=== PATIENT | male | born 1950 | race Caucasian/White ===

== ENCOUNTER 2017-07-08 01:45 | Emergency (ER) | payer OTHER, MEDICARE ==
[~2017-07-08] VITALS: Ht 180.3 cm; Wt 104.3 kg
[~2017-07-08 01:45] MED LIST: ACEBUTCAFT PO; ASPI325; ASPI325 PO; ASPI81CH PO; ASPI81EC; ASPI81EC PO; ATEN50 PO; ATOR80 PO; AZIT250 PO; CLOP75; CODGUAEL PO; CYCL10 PO; DIVA250EC; DIVA500EC; DIVA500EC PO; DOC250 PO; DOCU100 PO; Esgic Tablet1 EACH PO; FENT25TP; FENT50TP; FLUT.05NI; GABA300; GABA400; HEART PILL; HYDACE5; HYDMOR2 PO; IMIP25; ISODICACE PO; Inderal40 MG PO; LAVAP17G PO; MAGCHL64ER; METHADONE; METO25ER PO; METO50ER; MORP15ER PO; NAPR220; NAPR500 PO; NEURO; NEURONTIN; NITR.4SL; NITR.4SL SL; OXYACE5T; OXYACE5T PO; OXYACE7.5T PO; OXYC10ER; OXYCODONE; PANT20 PO; RXHYDMOR2 PO; RXONDA4ODT MM; RXOXYACE PO; TIZA4; TOPI25; WARF5; XARELTO20 MG PO
[2017-07-08] MEDS ORDERED: HYDMOR2 PO (02:07)
== END 2017-07-08 03:43 | disposition home or self-care (01) ==
LOC: ER 01:45
DX: R51 Headache (principal); G43.909 Migraine, unspecified, not intractable, without status migrainosus; I25.2 Old myocardial infarction; I25.10 Atherosclerotic heart disease of native coronary artery without angina pectoris; I10 Essential (primary) hypertension; E11.9 Type 2 diabetes mellitus without complications; I48.0 Paroxysmal atrial fibrillation; Z79.82 Long term (current) use of aspirin; Z88.8 Allergy status to other drugs, medicaments and biological substances; Z95.5 Presence of coronary angioplasty implant and graft; Z98.890 Other specified postprocedural states
CPT/HCPCS: 96374; 99283; J1100; J1885

== ENCOUNTER 2017-11-21 01:17 | Emergency (ER) | payer OTHER, MEDICARE ==
[~2017-11-21] VITALS: Ht 180.3 cm; Wt 102.1 kg
== END 2017-11-21 03:35 | disposition home or self-care (01) ==
LOC: ER 01:17
DX: R51 Headache (principal); I25.2 Old myocardial infarction; I25.10 Atherosclerotic heart disease of native coronary artery without angina pectoris; I48.0 Paroxysmal atrial fibrillation; I10 Essential (primary) hypertension; E11.9 Type 2 diabetes mellitus without complications; Z88.8 Allergy status to other drugs, medicaments and biological substances; Z79.899 Other long term (current) drug therapy; Z79.82 Long term (current) use of aspirin; Z87.891 Personal history of nicotine dependence
CPT/HCPCS: 96374; 96375; 99283-25; J1170; J1885; J2405

== ENCOUNTER 2018-07-26 02:18 | Emergency (ER) | payer OTHER, MEDICARE ==
[~2018-07-26] VITALS: Ht 177.8 cm; Wt 102.1 kg
== END 2018-07-26 03:59 | disposition home or self-care (01) ==
LOC: ER 02:18
DX: R51 Headache (principal); I10 Essential (primary) hypertension; E11.9 Type 2 diabetes mellitus without complications; I25.2 Old myocardial infarction; I25.10 Atherosclerotic heart disease of native coronary artery without angina pectoris; I48.0 Paroxysmal atrial fibrillation; Z79.899 Other long term (current) drug therapy; Z79.82 Long term (current) use of aspirin
CPT/HCPCS: 96374; 96375; 96376; 99284-25; J1170; J1885

== ENCOUNTER 2018-11-01 01:38 | Emergency (ER) | payer OTHER, MEDICARE ==
[~2018-11-01] VITALS: Ht 180.3 cm; Wt 102.1 kg
== END 2018-11-01 04:00 | disposition home or self-care (01) ==
LOC: ER 01:38
DX: R51 Headache (principal); Z88.8 Allergy status to other drugs, medicaments and biological substances; Z79.899 Other long term (current) drug therapy; Z79.82 Long term (current) use of aspirin; I25.10 Atherosclerotic heart disease of native coronary artery without angina pectoris; I48.0 Paroxysmal atrial fibrillation; I10 Essential (primary) hypertension; E11.9 Type 2 diabetes mellitus without complications; Z87.891 Personal history of nicotine dependence
CPT/HCPCS: 96374; 96375; 99283-25; J1170; J1885

== ENCOUNTER 2018-11-24 01:38 | Emergency (ER) | payer OTHER, MEDICARE ==
[~2018-11-24] VITALS: Ht 180.3 cm; Wt 104.3 kg
== END 2018-11-24 03:22 | disposition home or self-care (01) ==
LOC: ER 01:38
DX: R51 Headache (principal); I25.2 Old myocardial infarction; I10 Essential (primary) hypertension; E11.9 Type 2 diabetes mellitus without complications; I48.0 Paroxysmal atrial fibrillation; Z87.891 Personal history of nicotine dependence; Z79.899 Other long term (current) drug therapy
CPT/HCPCS: 96374; 96375; 96376; 99283-25; J1170; J1885

== ENCOUNTER 2019-03-15 00:45 | Emergency (ER) | payer OTHER, MEDICARE ==
[~2019-03-15] VITALS: Ht 180.3 cm; Wt 104.3 kg
== END 2019-03-15 02:41 | disposition home or self-care (01) ==
LOC: ER 00:45
DX: R51 Headache (principal); T43.4X5A Adverse effect of butyrophenone and thiothixene neuroleptics, initial encounter; Z88.8 Allergy status to other drugs, medicaments and biological substances; Z79.899 Other long term (current) drug therapy; Z79.82 Long term (current) use of aspirin; G43.909 Migraine, unspecified, not intractable, without status migrainosus; I10 Essential (primary) hypertension; E11.9 Type 2 diabetes mellitus without complications; I48.91 Unspecified atrial fibrillation; Z87.891 Personal history of nicotine dependence
CPT/HCPCS: 96361; 96374; 96375; 99283-25; J1170; J1885; J2060; J7030

== ENCOUNTER 2019-04-23 01:52 | Emergency (ER) | payer OTHER, MEDICARE ==
[~2019-04-23] VITALS: Ht 180.3 cm; Wt 104.3 kg
== END 2019-04-23 03:11 | disposition home or self-care (01) ==
LOC: ER 01:52
DX: R51 Headache (principal); I10 Essential (primary) hypertension; E11.9 Type 2 diabetes mellitus without complications; I25.2 Old myocardial infarction; I25.10 Atherosclerotic heart disease of native coronary artery without angina pectoris; I48.0 Paroxysmal atrial fibrillation; Z88.8 Allergy status to other drugs, medicaments and biological substances; Z79.82 Long term (current) use of aspirin; Z79.899 Other long term (current) drug therapy; Z87.891 Personal history of nicotine dependence
CPT/HCPCS: 96374; 96375; 99283-25; J1170; J1885

== ENCOUNTER 2019-09-05 03:20 | Emergency (ER) | payer OTHER, MEDICARE ==
[~2019-09-05] VITALS: Ht 180.3 cm; Wt 104.3 kg
== END 2019-09-05 04:01 | disposition home or self-care (01) ==
LOC: ER 03:20
DX: R51 Headache (principal); I10 Essential (primary) hypertension; I25.2 Old myocardial infarction; E11.9 Type 2 diabetes mellitus without complications; I48.0 Paroxysmal atrial fibrillation; I25.10 Atherosclerotic heart disease of native coronary artery without angina pectoris; Z88.8 Allergy status to other drugs, medicaments and biological substances; Z79.82 Long term (current) use of aspirin; Z79.899 Other long term (current) drug therapy
CPT/HCPCS: 36415; 96374; 96375; 99283-25; J1170; J1885

== ENCOUNTER 2019-09-16 02:12 | Emergency (ER) | payer OTHER, MEDICARE ==
[~2019-09-16] VITALS: Ht 182.9 cm; Wt 102.1 kg
== END 2019-09-16 03:52 | disposition home or self-care (01) ==
LOC: ER 02:12
DX: R51 Headache (principal); Z87.820 Personal history of traumatic brain injury; I10 Essential (primary) hypertension; E11.9 Type 2 diabetes mellitus without complications; I25.10 Atherosclerotic heart disease of native coronary artery without angina pectoris; I48.0 Paroxysmal atrial fibrillation; I25.2 Old myocardial infarction; Z88.8 Allergy status to other drugs, medicaments and biological substances; Z79.82 Long term (current) use of aspirin; Z79.899 Other long term (current) drug therapy
CPT/HCPCS: 96374; 96375; 99283-25; J1170; J1885

== ENCOUNTER 2019-10-09 00:29 | Emergency (ER) | payer OTHER, MEDICARE ==
[~2019-10-09] VITALS: Ht 180.3 cm; Wt 104.3 kg
== END 2019-10-09 02:08 | disposition home or self-care (01) ==
LOC: ER 00:29
DX: G43.909 Migraine, unspecified, not intractable, without status migrainosus (principal); I25.2 Old myocardial infarction; I25.10 Atherosclerotic heart disease of native coronary artery without angina pectoris; I48.0 Paroxysmal atrial fibrillation; I10 Essential (primary) hypertension; E11.9 Type 2 diabetes mellitus without complications; Z88.8 Allergy status to other drugs, medicaments and biological substances; Z79.82 Long term (current) use of aspirin; Z79.899 Other long term (current) drug therapy
CPT/HCPCS: 36415; 96374; 96375; 99282-25; J1170; J1885

== ENCOUNTER 2019-11-15 00:12 | Emergency (ER) | payer OTHER, MEDICARE ==
[~2019-11-15] VITALS: Ht 180.3 cm; Wt 104.3 kg
== END 2019-11-15 01:52 | disposition home or self-care (01) ==
LOC: ER 00:12
DX: R51 Headache (principal); Z88.8 Allergy status to other drugs, medicaments and biological substances; Z79.82 Long term (current) use of aspirin; Z79.899 Other long term (current) drug therapy; I25.2 Old myocardial infarction; I25.10 Atherosclerotic heart disease of native coronary artery without angina pectoris; I10 Essential (primary) hypertension; I48.91 Unspecified atrial fibrillation; E11.9 Type 2 diabetes mellitus without complications
CPT/HCPCS: 36415; 96374; 96375; 99283-25; J1170; J1885

== ENCOUNTER 2020-01-04 03:45 | Emergency (ER) | payer OTHER, MEDICARE ==
[~2020-01-04] VITALS: Ht 180.3 cm; Wt 104.3 kg
== END 2020-01-04 04:56 | disposition home or self-care (01) ==
LOC: ER 03:45
DX: R51 Headache (principal); Z87.820 Personal history of traumatic brain injury; I10 Essential (primary) hypertension; E11.9 Type 2 diabetes mellitus without complications; I25.10 Atherosclerotic heart disease of native coronary artery without angina pectoris; I48.0 Paroxysmal atrial fibrillation; I25.2 Old myocardial infarction; Z95.5 Presence of coronary angioplasty implant and graft; Z87.891 Personal history of nicotine dependence; Z79.899 Other long term (current) drug therapy; Z79.82 Long term (current) use of aspirin
CPT/HCPCS: 96374; 99283-25; J1885

== ENCOUNTER 2020-04-20 04:43 | Emergency (ER) | payer OTHER, MEDICARE ==
[~2020-04-20] VITALS: Ht 180.3 cm; Wt 104.3 kg
== END 2020-04-20 05:48 | disposition home or self-care (01) ==
LOC: ER 04:43
DX: R51.9 Headache, unspecified (principal); I10 Essential (primary) hypertension; E11.9 Type 2 diabetes mellitus without complications; I25.10 Atherosclerotic heart disease of native coronary artery without angina pectoris; I48.0 Paroxysmal atrial fibrillation; I25.2 Old myocardial infarction; Z95.5 Presence of coronary angioplasty implant and graft; Z87.891 Personal history of nicotine dependence; Z79.82 Long term (current) use of aspirin; Z79.899 Other long term (current) drug therapy; Z88.8 Allergy status to other drugs, medicaments and biological substances
CPT/HCPCS: 96374; 96375; 99283-25; J1170; J2405; J7030

== ENCOUNTER 2020-06-23 15:36 | Emergency (ER) | payer OTHER, MEDICARE ==
[~2020-06-23] VITALS: Ht 180.3 cm; Wt 90.7 kg
[2020-06-24] MEDS ORDERED: Zovirax800 MG PO (00:53)
[2020-06-24] MEDS ORDERED: LIDO700A20 TOP (00:53)
== END 2020-06-23 16:41 | disposition left against medical advice (07) ==
LOC: ER 15:36
DX: M25.512 Pain in left shoulder (principal); Z53.21 Procedure and treatment not carried out due to patient leaving prior to being seen by health care provider
CPT/HCPCS: 73030; 99283-25

== ENCOUNTER 2020-06-24 00:23 | Emergency (ER) | payer MEDICARE ==
[~2020-06-24] VITALS: Ht 180.3 cm; Wt 108.9 kg
[2020-06-24] MEDS ORDERED: Zovirax800 MG PO (00:53)
[2020-06-24] MEDS ORDERED: LIDO700A20 TOP (00:53)
== END 2020-06-24 01:47 | disposition home or self-care (01) ==
LOC: ER 00:23
DX: B02.9 Zoster without complications (principal); I10 Essential (primary) hypertension; E11.9 Type 2 diabetes mellitus without complications; I25.10 Atherosclerotic heart disease of native coronary artery without angina pectoris; I48.0 Paroxysmal atrial fibrillation; Z88.8 Allergy status to other drugs, medicaments and biological substances; Z79.82 Long term (current) use of aspirin; Z79.899 Other long term (current) drug therapy
CPT/HCPCS: 96374; 96375; 99283-25; A9270; J1170; J2405; J7030

== ENCOUNTER 2020-07-25 23:12 | Emergency (ER) | payer OTHER, MEDICARE ==
[~2020-07-25] VITALS: Ht 175.3 cm; Wt 102.1 kg
[~2020-07-25 23:12] MED LIST changes: +LIDO700A20 TOP; +Zovirax800 MG PO
== END 2020-07-26 02:49 | disposition home or self-care (01) ==
LOC: ER 23:12
DX: R51.9 Headache, unspecified (principal); I10 Essential (primary) hypertension; E11.9 Type 2 diabetes mellitus without complications; I25.10 Atherosclerotic heart disease of native coronary artery without angina pectoris; I48.0 Paroxysmal atrial fibrillation; F17.220 Nicotine dependence, chewing tobacco, uncomplicated; Z79.82 Long term (current) use of aspirin; Z79.899 Other long term (current) drug therapy; Z88.8 Allergy status to other drugs, medicaments and biological substances
CPT/HCPCS: 96374; 96375; 99283-25; J1170; J2550; J7030

== ENCOUNTER 2020-08-30 23:49 | Emergency (ER) | payer OTHER, MEDICARE ==
[~2020-08-30] VITALS: Ht 180.3 cm; Wt 106.6 kg
== END 2020-08-31 01:37 | disposition home or self-care (01) ==
LOC: ER 23:49
DX: R51.9 Headache, unspecified (principal); I48.91 Unspecified atrial fibrillation; I25.2 Old myocardial infarction; I10 Essential (primary) hypertension; E11.9 Type 2 diabetes mellitus without complications; F17.220 Nicotine dependence, chewing tobacco, uncomplicated; Z95.5 Presence of coronary angioplasty implant and graft; Z79.899 Other long term (current) drug therapy; Z79.82 Long term (current) use of aspirin
CPT/HCPCS: 96374; 96375; 99283; J1170; J2550

== ENCOUNTER 2020-10-31 03:30 | Emergency (ER) | payer OTHER, MEDICARE ==
[~2020-10-31] VITALS: Ht 180.3 cm; Wt 104.3 kg
== END 2020-10-31 05:26 | disposition home or self-care (01) ==
LOC: ER 03:30
DX: R51.9 Headache, unspecified (principal); I10 Essential (primary) hypertension; F17.220 Nicotine dependence, chewing tobacco, uncomplicated; Z88.8 Allergy status to other drugs, medicaments and biological substances; Z79.899 Other long term (current) drug therapy
CPT/HCPCS: 96374; 96375; 96376; 99283-25; J1170; J2405

== ENCOUNTER 2020-11-11 03:04 | Emergency (ER) | payer OTHER, MEDICARE ==
[~2020-11-11] VITALS: Ht 180.3 cm; Wt 104.3 kg
== END 2020-11-11 07:52 | disposition home or self-care (01) ==
LOC: ER 03:04
DX: G43.909 Migraine, unspecified, not intractable, without status migrainosus (principal); I25.10 Atherosclerotic heart disease of native coronary artery without angina pectoris; I48.91 Unspecified atrial fibrillation; I10 Essential (primary) hypertension; E11.9 Type 2 diabetes mellitus without complications; F17.220 Nicotine dependence, chewing tobacco, uncomplicated; Z88.8 Allergy status to other drugs, medicaments and biological substances; Z79.82 Long term (current) use of aspirin; Z95.5 Presence of coronary angioplasty implant and graft; Z79.899 Other long term (current) drug therapy
CPT/HCPCS: 36415; 96374; 96375; 99283-25; J1170; J1885

== ENCOUNTER 2021-04-10 23:39 | Emergency (ER) | payer OTHER, MEDICARE ==
[~2021-04-10] VITALS: Ht 180.3 cm; Wt 99.8 kg
== END 2021-04-11 03:35 | disposition home or self-care (01) ==
LOC: ER 23:39
DX: R51.9 Headache, unspecified (principal); I25.2 Old myocardial infarction; I25.10 Atherosclerotic heart disease of native coronary artery without angina pectoris; I48.91 Unspecified atrial fibrillation; I10 Essential (primary) hypertension; E11.9 Type 2 diabetes mellitus without complications; F17.220 Nicotine dependence, chewing tobacco, uncomplicated; Z88.8 Allergy status to other drugs, medicaments and biological substances; Z79.82 Long term (current) use of aspirin; Z79.899 Other long term (current) drug therapy
CPT/HCPCS: 36415; 96374; 96375; 99283; A9270; J1170; J1885

== ENCOUNTER 2021-06-29 02:02 | Emergency (ER) | payer OTHER ==
[~2021-06-29] VITALS: Ht 162.6 cm; Wt 99.8 kg
== END 2021-06-29 02:41 | disposition home or self-care (01) ==
LOC: ER 02:02
DX: R51.9 Headache, unspecified (principal); I10 Essential (primary) hypertension; I48.91 Unspecified atrial fibrillation; E11.9 Type 2 diabetes mellitus without complications; Z79.899 Other long term (current) drug therapy; Z87.891 Personal history of nicotine dependence
CPT/HCPCS: 96372; 99283-25; J1170; J1885

== ENCOUNTER 2021-07-02 01:57 | Emergency (ER) | payer OTHER ==
[~2021-07-02] VITALS: Ht 180.3 cm; Wt 104.3 kg
== END 2021-07-02 04:09 | disposition home or self-care (01) ==
LOC: ER 01:57
DX: R51.9 Headache, unspecified (principal); I10 Essential (primary) hypertension; Z87.891 Personal history of nicotine dependence; Z79.899 Other long term (current) drug therapy; Z88.8 Allergy status to other drugs, medicaments and biological substances
CPT/HCPCS: 96374; 96375; 99283-25; J1170; J1885

== ENCOUNTER 2021-08-18 00:17 | Emergency (ER) | payer OTHER ==
[~2021-08-18] VITALS: Ht 180.3 cm; Wt 104.3 kg
[2021-08-18 02:02] LABS: Alanine Aminotransfer (ALT/SGP 22 U/L (12-78); Albumin, Blood 3.3 g/dL (3.4-5.0); Albumin/Globulin Ratio 0.9 (0.8-1.8); Alk Phos 101 U/L (50-136); Anion Gap 6 mmol/L (6-16); Aspartate Aminotrans (AST/SGOT 17 U/L (12-37); BASOPHILS ABSOLUTE AUTO 0.05 K/mm3 (0.00-0.23); BASOPHILS PERCENT AUTO 1 % (0-2); Bilirubin, Total 0.2 mg/dL (0.1-1.0); Blood Urea Nitrogen 16 mg/dL (8-24); Bun/Creatinine Ratio 20.7 (12.0-20.0); CO2, Blood 27 mmol/L (21-32); Calcium, Blood 8.7 mg/dL (8.5-10.1); Chloride, Blood 108 mmol/L (98-108); Creatinine, Blood 0.77 mg/dL (0.60-1.20); EOSINOPHILS ABSOLUTE AUTO 0.25 K/mm3 (0.00-0.68); EOSINOPHILS PERCENT AUTO 3 % (0-6); Globulin, Blood 3.8 g/dL (2.2-4.0); Glomerular Filtration Rate >60 (60-); Glucose, Blood 110 mg/dL (70-99); Hematocrit 48.1 % (37.0-53.0); IMMATURE GRAN ABSOLUTE AUTO 0.02 K/mm3 (0.00-0.10); IMMATURE GRAN PERCENT AUTO 0 % (0-1); LYMPHOCYTES ABSOLUTE AUTO 2.84 K/mm3 (0.84-5.20); LYMPHOCYTES PERCENT AUTO 39 % (21-46); MONOCYTES ABSOLUTE AUTO 0.59 K/mm3 (0.16-1.47); MONOCYTES PERCENT AUTO 8 % (4-13); Mean Corpuscular HGB 30.9 pg (26.0-34.0); Mean Corpuscular HGB Conc 33.3 g/dL (31.5-36.5); Mean Corpuscular Volume 93 fL (80-100); Mean Platelet Volume 10.8 fL (9.1-12.4); NEUTROPHILS ABSOLUTE AUTO 3.58 K/mm3 (1.96-9.15); NEUTROPHILS PERCENT AUTO 49 % (41-73); Platelet Count 227 K/mm3 (150-400); RDW Coefficient Variation 12.5 % (11.7-14.2); RDW Standard Deviation 42.8 fL (35.1-46.3); Red Blood Cell Count 5.17 M/mm3 (4.30-5.90); Sodium, Blood 141 mmol/L (136-145); Total Protein, Blood 7.1 g/dL (6.4-8.2); White Blood Cell Count 7.33 K/mm3 (4.00-11.30)
[2021-08-18 02:05] LABS: International Normalized Ratio 1.09; Prothrombin Time Results 11.4 Sec (9.7-11.5)
== END 2021-08-18 02:48 | disposition home or self-care (01) ==
LOC: ER 00:17
PROVIDERS: Student in an Organized Health Care Education/Training Program
DX: G43.909 Migraine, unspecified, not intractable, without status migrainosus (principal); I25.10 Atherosclerotic heart disease of native coronary artery without angina pectoris; I10 Essential (primary) hypertension; E11.9 Type 2 diabetes mellitus without complications; F17.220 Nicotine dependence, chewing tobacco, uncomplicated; Z88.8 Allergy status to other drugs, medicaments and biological substances; Z79.899 Other long term (current) drug therapy; Z79.82 Long term (current) use of aspirin
CPT/HCPCS: 36415; 70450; 80053; 85025; 85610; 85730; 86850; 86900; 86901; J1170

== ENCOUNTER 2021-09-30 01:48 | Emergency (ER) | payer OTHER ==
[~2021-09-30] VITALS: Ht 180.3 cm; Wt 90.7 kg
== END 2021-09-30 03:07 | disposition home or self-care (01) ==
LOC: ER 01:48
DX: R51.9 Headache, unspecified (principal); I10 Essential (primary) hypertension; E11.9 Type 2 diabetes mellitus without complications; I25.10 Atherosclerotic heart disease of native coronary artery without angina pectoris; F17.220 Nicotine dependence, chewing tobacco, uncomplicated; Z88.8 Allergy status to other drugs, medicaments and biological substances; Z79.82 Long term (current) use of aspirin; Z79.899 Other long term (current) drug therapy; Z87.820 Personal history of traumatic brain injury
CPT/HCPCS: J1170; J1885; J2405

== ENCOUNTER 2021-10-12 01:50 | Emergency (ER) | payer OTHER ==
[~2021-10-12] VITALS: Ht 180.3 cm; Wt 104.3 kg
== END 2021-10-12 05:44 | disposition home or self-care (01) ==
LOC: ER 01:50
DX: G43.909 Migraine, unspecified, not intractable, without status migrainosus (principal); I10 Essential (primary) hypertension; E11.9 Type 2 diabetes mellitus without complications; I25.10 Atherosclerotic heart disease of native coronary artery without angina pectoris; F17.220 Nicotine dependence, chewing tobacco, uncomplicated
CPT/HCPCS: J1170; J1885; J2405

== ENCOUNTER 2021-12-17 03:35 | Emergency (ER) | payer OTHER | END 2021-12-17 05:01 | disposition home or self-care (01) | LOC: ER 03:35 | DX: G43.909 Migraine, unspecified, not intractable, without status migrainosus (principal); Z87.820 Personal history of traumatic brain injury; Z87.891 Personal history of nicotine dependence | CPT/HCPCS: 96374; 96375; 99283-25 ==

== ENCOUNTER 2022-02-18 01:50 | Emergency (ER) | payer OTHER ==
[~2022-02-18] VITALS: Ht 177.8 cm; Wt 104.3 kg
== END 2022-02-18 03:19 | disposition home or self-care (01) ==
LOC: ER 01:50
DX: R51.9 Headache, unspecified (principal); I25.2 Old myocardial infarction; I25.10 Atherosclerotic heart disease of native coronary artery without angina pectoris; I10 Essential (primary) hypertension; E11.9 Type 2 diabetes mellitus without complications; F17.220 Nicotine dependence, chewing tobacco, uncomplicated; Z88.8 Allergy status to other drugs, medicaments and biological substances; Z79.82 Long term (current) use of aspirin
CPT/HCPCS: J1170; J1885

== ENCOUNTER 2022-03-05 02:52 | Emergency (ER) | payer OTHER ==
[~2022-03-05] VITALS: Ht 180.3 cm; Wt 104.3 kg
== END 2022-03-05 06:15 | disposition home or self-care (01) ==
LOC: ER 02:52
DX: R51.9 Headache, unspecified (principal); F11.90 Opioid use, unspecified, uncomplicated; I25.10 Atherosclerotic heart disease of native coronary artery without angina pectoris; I25.2 Old myocardial infarction; I48.91 Unspecified atrial fibrillation; I10 Essential (primary) hypertension; E11.9 Type 2 diabetes mellitus without complications; F17.220 Nicotine dependence, chewing tobacco, uncomplicated; Z88.8 Allergy status to other drugs, medicaments and biological substances; Z79.899 Other long term (current) drug therapy; Z79.82 Long term (current) use of aspirin
CPT/HCPCS: J1170; J1885

== ENCOUNTER 2022-03-10 03:38 | Emergency (ER) | payer OTHER ==
[~2022-03-10] VITALS: Ht 170.2 cm; Wt 90.7 kg
== END 2022-03-10 06:23 | disposition home or self-care (01) ==
LOC: ER 03:38
DX: R51.9 Headache, unspecified (principal); I25.10 Atherosclerotic heart disease of native coronary artery without angina pectoris; I10 Essential (primary) hypertension; E11.9 Type 2 diabetes mellitus without complications; F17.220 Nicotine dependence, chewing tobacco, uncomplicated; Z88.8 Allergy status to other drugs, medicaments and biological substances; Z79.899 Other long term (current) drug therapy; Z79.82 Long term (current) use of aspirin
CPT/HCPCS: 36415; J1170; J1885

== ENCOUNTER 2022-03-16 22:49 | Emergency (ER) | payer OTHER ==
[~2022-03-16] VITALS: Ht 180.3 cm; Wt 104.3 kg
[2022-03-17 00:31] LABS: BASOPHILS ABSOLUTE AUTO 0.03 K/mm3 (0.00-0.23); BASOPHILS PERCENT AUTO 1 % (0-2); EOSINOPHILS ABSOLUTE AUTO 0.05 K/mm3 (0.00-0.68); EOSINOPHILS PERCENT AUTO 1 % (0-6); Hematocrit 46.1 % (37.0-53.0); IMMATURE GRAN ABSOLUTE AUTO 0.02 K/mm3 (0.00-0.10); IMMATURE GRAN PERCENT AUTO 0 % (0-1); LYMPHOCYTES ABSOLUTE AUTO 2.29 K/mm3 (0.84-5.20); LYMPHOCYTES PERCENT AUTO 39 % (21-46); MONOCYTES ABSOLUTE AUTO 0.46 K/mm3 (0.16-1.47); MONOCYTES PERCENT AUTO 8 % (4-13); Mean Corpuscular HGB 30.9 pg (26.0-34.0); Mean Corpuscular HGB Conc 34.7 g/dL (31.5-36.5); Mean Corpuscular Volume 89 fL (80-100); Mean Platelet Volume 10.1 fL (9.1-12.4); NEUTROPHILS ABSOLUTE AUTO 3.07 K/mm3 (1.96-9.15); NEUTROPHILS PERCENT AUTO 52 % (41-73); Platelet Count 299 K/mm3 (150-400); RDW Coefficient Variation 11.9 % (11.7-14.2); RDW Standard Deviation 38.7 fL (35.1-46.3); Red Blood Cell Count 5.18 M/mm3 (4.30-5.90); White Blood Cell Count 5.92 K/mm3 (4.00-11.30)
[2022-03-17 00:53] LABS: Albumin, Blood 2.8 g/dL (3.4-5.0); Albumin/Globulin Ratio 0.6 (0.8-1.8); Bilirubin, Total 0.4 mg/dL (0.1-1.0); Bun/Creatinine Ratio 11.9 (12.0-20.0); Calcium, Blood 8.6 mg/dL (8.5-10.1); Creatinine, Blood 0.76 mg/dL (0.60-1.20); Globulin, Blood 4.6 g/dL (2.2-4.0); Potassium, Blood 4.1 mmol/L (3.5-5.5); Total Protein, Blood 7.4 g/dL (6.4-8.2)
== END 2022-03-17 03:32 | disposition home or self-care (01) ==
LOC: ER 22:49
PROVIDERS: Student in an Organized Health Care Education/Training Program
DX: J11.1 Influenza due to unidentified influenza virus with other respiratory manifestations (principal); G43.909 Migraine, unspecified, not intractable, without status migrainosus; I25.2 Old myocardial infarction; I25.10 Atherosclerotic heart disease of native coronary artery without angina pectoris; I48.91 Unspecified atrial fibrillation; I10 Essential (primary) hypertension; E11.9 Type 2 diabetes mellitus without complications; F17.220 Nicotine dependence, chewing tobacco, uncomplicated; Z88.8 Allergy status to other drugs, medicaments and biological substances; Z79.899 Other long term (current) drug therapy; Z79.82 Long term (current) use of aspirin
CPT/HCPCS: 36415; 71046; 80053; 83690; 83880; 84484; 85025; 93005; 93010; J1885

== ENCOUNTER 2022-07-07 03:59 | Emergency (ER) | payer OTHER ==
[~2022-07-07] VITALS: Ht 177.8 cm; Wt 90.7 kg
== END 2022-07-07 05:35 | disposition home or self-care (01) ==
LOC: ER 03:59
DX: R51.9 Headache, unspecified (principal); I25.10 Atherosclerotic heart disease of native coronary artery without angina pectoris; I10 Essential (primary) hypertension; E11.9 Type 2 diabetes mellitus without complications; I25.2 Old myocardial infarction; F17.220 Nicotine dependence, chewing tobacco, uncomplicated; Z87.820 Personal history of traumatic brain injury; Z88.8 Allergy status to other drugs, medicaments and biological substances; Z79.899 Other long term (current) drug therapy
CPT/HCPCS: J1170; J1885

== ENCOUNTER 2022-07-21 04:02 | Emergency (ER) | payer OTHER ==
[~2022-07-21] VITALS: Ht 182.9 cm; Wt 81.7 kg
== END 2022-07-21 05:56 | disposition home or self-care (01) ==
LOC: ER 04:02
DX: R51.9 Headache, unspecified (principal); Z88.8 Allergy status to other drugs, medicaments and biological substances; Z79.899 Other long term (current) drug therapy; Z79.82 Long term (current) use of aspirin; I10 Essential (primary) hypertension; I48.91 Unspecified atrial fibrillation; G43.909 Migraine, unspecified, not intractable, without status migrainosus; I25.2 Old myocardial infarction; I25.10 Atherosclerotic heart disease of native coronary artery without angina pectoris; E11.9 Type 2 diabetes mellitus without complications; F17.220 Nicotine dependence, chewing tobacco, uncomplicated
CPT/HCPCS: 96361; 96374; 96375; 96376; 99283-25; J1170; J1885; J7030

== ENCOUNTER 2022-08-06 01:44 | Emergency (ER) | payer OTHER ==
[~2022-08-06] VITALS: Ht 180.3 cm; Wt 104.3 kg
[2022-08-06 01:55] VITALS: BP 146/89
== END 2022-08-06 03:08 | disposition home or self-care (01) ==
LOC: ER 01:44
DX: M25.552 Pain in left hip (principal); M79.652 Pain in left thigh; I10 Essential (primary) hypertension; E11.9 Type 2 diabetes mellitus without complications; I25.10 Atherosclerotic heart disease of native coronary artery without angina pectoris; I25.2 Old myocardial infarction; F17.220 Nicotine dependence, chewing tobacco, uncomplicated; Z88.8 Allergy status to other drugs, medicaments and biological substances; Z79.82 Long term (current) use of aspirin; Z79.899 Other long term (current) drug therapy
CPT/HCPCS: 96372; 99283-25; A9270; J1885; J3301

== ENCOUNTER 2022-09-22 04:19 | Emergency (ER) | payer SELFPAY ==
[~2022-09-22] VITALS: Ht 180.3 cm; Wt 102.1 kg
[2022-09-22 05:03] VITALS: BP 130/98
== END 2022-09-22 05:07 | disposition home or self-care (01) ==
LOC: ER 04:19
DX: R51.9 Headache, unspecified (principal); I10 Essential (primary) hypertension; E11.9 Type 2 diabetes mellitus without complications; I25.10 Atherosclerotic heart disease of native coronary artery without angina pectoris; I25.2 Old myocardial infarction; F17.220 Nicotine dependence, chewing tobacco, uncomplicated; Z87.820 Personal history of traumatic brain injury; Z79.899 Other long term (current) drug therapy; Z79.82 Long term (current) use of aspirin; Z95.5 Presence of coronary angioplasty implant and graft
CPT/HCPCS: 96374; 96375; 99283-25; A9270; J1170; J1885

== ENCOUNTER 2022-10-01 01:40 | Emergency (ER) | payer SELFPAY ==
[~2022-10-01] VITALS: Ht 180.3 cm; Wt 102.1 kg
[2022-10-01 03:12] LABS: Influenza A, PCR NEGATIVE (NEGATIVE); Influenza B, PCR NEGATIVE (NEGATIVE); Resp Syncytial Virus, PCR NEGATIVE (NEGATIVE)
[2022-10-01 03:26] LABS: SARS-Cov-2 (COVID-19) PCR, MMC POSITIVE (NEGATIVE)
[2022-10-01 03:45] VITALS: BP 145/97
== END 2022-10-01 04:02 | disposition home or self-care (01) ==
LOC: ER 01:40
PROVIDERS: Emergency Medicine
DX: U07.1 COVID-19 (principal); I25.2 Old myocardial infarction; I25.10 Atherosclerotic heart disease of native coronary artery without angina pectoris; I10 Essential (primary) hypertension; E11.9 Type 2 diabetes mellitus without complications; F17.220 Nicotine dependence, chewing tobacco, uncomplicated; Z88.8 Allergy status to other drugs, medicaments and biological substances; Z79.82 Long term (current) use of aspirin; Z79.899 Other long term (current) drug therapy
CPT/HCPCS: 0241U; 96374; 96375; 99284-25; J1170; J1885; J2405

== ENCOUNTER 2022-11-27 02:30 | Emergency (ER) | payer OTHER ==
[~2022-11-27] VITALS: Ht 180.3 cm; Wt 104.3 kg
[2022-11-27 04:03] VITALS: BP 143/103
== END 2022-11-27 04:05 | disposition home or self-care (01) ==
LOC: ER 02:30
DX: G43.909 Migraine, unspecified, not intractable, without status migrainosus (principal); I25.10 Atherosclerotic heart disease of native coronary artery without angina pectoris; I25.2 Old myocardial infarction; I10 Essential (primary) hypertension; E11.9 Type 2 diabetes mellitus without complications; F17.220 Nicotine dependence, chewing tobacco, uncomplicated; Z88.8 Allergy status to other drugs, medicaments and biological substances; Z79.82 Long term (current) use of aspirin; Z79.899 Other long term (current) drug therapy
CPT/HCPCS: A9270; J1170; J1885

== ENCOUNTER 2023-02-04 01:44 | Emergency (ER) | payer OTHER ==
[~2023-02-04] VITALS: Ht 180.3 cm; Wt 104.3 kg
[2023-02-04 04:10] VITALS: BP 150/114
== END 2023-02-04 04:31 | disposition home or self-care (01) ==
LOC: ER 01:44
DX: R51.9 Headache, unspecified (principal); F17.220 Nicotine dependence, chewing tobacco, uncomplicated; I25.2 Old myocardial infarction; I25.10 Atherosclerotic heart disease of native coronary artery without angina pectoris; I48.91 Unspecified atrial fibrillation; I10 Essential (primary) hypertension; E11.9 Type 2 diabetes mellitus without complications; Z87.820 Personal history of traumatic brain injury; Z95.5 Presence of coronary angioplasty implant and graft; Z88.8 Allergy status to other drugs, medicaments and biological substances; Z79.899 Other long term (current) drug therapy; Z79.82 Long term (current) use of aspirin
CPT/HCPCS: 96374; 96375; 99283-25; J1170; J1885

== ENCOUNTER 2023-04-15 01:50 | Emergency (ER) | payer OTHER ==
[~2023-04-15] VITALS: Ht 180.3 cm; Wt 104.3 kg
[2023-04-15 01:59] VITALS: BP 142/111
== END 2023-04-15 03:55 | disposition home or self-care (01) ==
LOC: ER 01:50
DX: G43.909 Migraine, unspecified, not intractable, without status migrainosus (principal); E86.0 Dehydration; Z87.820 Personal history of traumatic brain injury; I10 Essential (primary) hypertension; I48.91 Unspecified atrial fibrillation; I25.2 Old myocardial infarction; E11.9 Type 2 diabetes mellitus without complications; I25.10 Atherosclerotic heart disease of native coronary artery without angina pectoris; F17.220 Nicotine dependence, chewing tobacco, uncomplicated; Z79.82 Long term (current) use of aspirin; Z79.899 Other long term (current) drug therapy; Z88.8 Allergy status to other drugs, medicaments and biological substances
CPT/HCPCS: 96374; 96375; 99283-25; J1170; J1885; J7030

== ENCOUNTER 2023-08-04 02:42 | Emergency (ER) | payer OTHER ==
[~2023-08-04] VITALS: Ht 180.3 cm; Wt 104.3 kg
[2023-08-04 02:55] VITALS: BP 153/101
[2023-08-04] MEDS ORDERED: Ipratropium/Albuterol SulF 2.5-0.5MG/3 ML Amp INH ONE (04:10)
[2023-08-04] MEDS ORDERED: PredniSONE 20 MG Tab PO ONE (04:10)
[2023-08-04] MEDS ORDERED: ALBU90OI INH (04:51)
[2023-08-04] MEDS ORDERED: PRED20 PO (04:51)
== END 2023-08-04 04:58 | disposition home or self-care (01) ==
LOC: ER 02:42
DX: J20.9 Acute bronchitis, unspecified (principal); F17.220 Nicotine dependence, chewing tobacco, uncomplicated; I25.10 Atherosclerotic heart disease of native coronary artery without angina pectoris; I25.2 Old myocardial infarction; E11.9 Type 2 diabetes mellitus without complications; I48.91 Unspecified atrial fibrillation; I10 Essential (primary) hypertension; Z95.5 Presence of coronary angioplasty implant and graft; Z88.8 Allergy status to other drugs, medicaments and biological substances; Z79.899 Other long term (current) drug therapy; Z79.82 Long term (current) use of aspirin
CPT/HCPCS: 71046; 94640; 94664; 99285-25; J7512

== ENCOUNTER 2023-09-23 01:44 | Emergency (ER) | payer OTHER ==
[~2023-09-23] VITALS: Ht 172.7 cm; Wt 104.3 kg
[~2023-09-23 01:44] MED LIST changes: +ALBU90OI INH; +PRED20 PO
[2023-09-23] MEDS ORDERED: Ketorolac Tromethamine 30mg Vial IV ONE (02:20)
[2023-09-23] MEDS ORDERED: HYDROmorphone HCl/Pf 1MG SYR IV ONE (02:20)
[2023-09-23 03:00] VITALS: BP 127/91
== END 2023-09-23 03:20 | disposition home or self-care (01) ==
LOC: ER 01:44
DX: G44.309 Post-traumatic headache, unspecified, not intractable (principal); G43.909 Migraine, unspecified, not intractable, without status migrainosus; I10 Essential (primary) hypertension; I48.91 Unspecified atrial fibrillation; E11.9 Type 2 diabetes mellitus without complications; I25.2 Old myocardial infarction; F17.220 Nicotine dependence, chewing tobacco, uncomplicated; Z79.82 Long term (current) use of aspirin; Z79.899 Other long term (current) drug therapy; Z88.8 Allergy status to other drugs, medicaments and biological substances
CPT/HCPCS: 96374; 96375; 99283-25; J1170; J1885

== ENCOUNTER 2023-10-22 00:50 | Emergency (ER) | payer OTHER ==
[~2023-10-22] VITALS: Ht 180.3 cm; Wt 104.3 kg
[2023-10-22] MEDS ORDERED: Loratadine 10 MG Tab PO ONE (01:40)
[2023-10-22] MEDS ORDERED: HYDROmorphone HCl/Pf 1MG SYR IV ONE (01:40)
[2023-10-22] MEDS ORDERED: Ketorolac Tromethamine 30mg Vial IV ONE (01:40)
[2023-10-22 02:15] VITALS: BP 126/92
== END 2023-10-22 02:35 | disposition home or self-care (01) ==
LOC: ER 00:50
DX: H91.91 Unspecified hearing loss, right ear (principal); R51.9 Headache, unspecified; I10 Essential (primary) hypertension; E11.9 Type 2 diabetes mellitus without complications; G43.909 Migraine, unspecified, not intractable, without status migrainosus; I48.91 Unspecified atrial fibrillation; F17.220 Nicotine dependence, chewing tobacco, uncomplicated; Z79.82 Long term (current) use of aspirin; Z79.899 Other long term (current) drug therapy; Z88.8 Allergy status to other drugs, medicaments and biological substances
CPT/HCPCS: A9270; J1170; J1885

== ENCOUNTER 2023-12-10 04:20 | Emergency (ER) | payer OTHER ==
[~2023-12-10] VITALS: Ht 177.8 cm; Wt 104.3 kg
[2023-12-10 04:28] VITALS: BP 151/99
[2023-12-10] MEDS ORDERED: HYDROmorphone HCl/Pf 1MG SYR IV ONE ×2 (04:35→05:15)
[2023-12-10] MEDS ORDERED: Ketorolac Tromethamine 30mg Vial IV ONE (04:35)
[2023-12-10] MEDS ORDERED: NS 1,000 ML IV SCH (04:50)
== END 2023-12-10 05:26 | disposition home or self-care (01) ==
LOC: ER 04:20
DX: R51.9 Headache, unspecified (principal); I48.91 Unspecified atrial fibrillation; I10 Essential (primary) hypertension; E11.9 Type 2 diabetes mellitus without complications; F17.220 Nicotine dependence, chewing tobacco, uncomplicated; Z68.33 Body mass index [BMI] 33.0-33.9, adult; Z79.82 Long term (current) use of aspirin; Z79.899 Other long term (current) drug therapy; Z88.8 Allergy status to other drugs, medicaments and biological substances
CPT/HCPCS: 96361; 96374; 96375; 96376; 99283-25; J1170; J1885; J7030

== ENCOUNTER 2024-01-07 05:08 | Emergency (ER) | payer OTHER ==
[~2024-01-07] VITALS: Ht 180.3 cm; Wt 104.3 kg
[2024-01-07 05:30] VITALS: BP 148/107
[2024-01-07] MEDS ORDERED: Ketorolac Tromethamine 15mg Vial IV ONE (06:35)
[2024-01-07] MEDS ORDERED: HYDROmorphone HCl/Pf 1MG SYR IV ONE (06:35)
== END 2024-01-07 07:36 | disposition home or self-care (01) ==
LOC: ER 05:08
DX: R51.9 Headache, unspecified (principal); E11.9 Type 2 diabetes mellitus without complications; I10 Essential (primary) hypertension; I48.91 Unspecified atrial fibrillation; I25.2 Old myocardial infarction; F17.220 Nicotine dependence, chewing tobacco, uncomplicated; Z79.82 Long term (current) use of aspirin; Z79.899 Other long term (current) drug therapy; Z88.8 Allergy status to other drugs, medicaments and biological substances
CPT/HCPCS: 96374; 96375; 99283-25; J1170; J1885

== ENCOUNTER 2024-03-07 01:53 | Emergency (ER) | payer OTHER ==
[~2024-03-07] VITALS: Ht 180.3 cm; Wt 102.1 kg
[2024-03-07 02:06] VITALS: BP 173/85
[2024-03-07] MEDS ORDERED: Ketorolac Tromethamine 30mg Vial IV ONE (02:15)
[2024-03-07] MEDS ORDERED: HYDROmorphone HCl/Pf 1MG SYR IV ONE (02:15)
== END 2024-03-07 02:54 | disposition home or self-care (01) ==
LOC: ER 01:53
DX: G43.909 Migraine, unspecified, not intractable, without status migrainosus (principal); E11.9 Type 2 diabetes mellitus without complications; I10 Essential (primary) hypertension; I48.91 Unspecified atrial fibrillation; I25.2 Old myocardial infarction; F17.220 Nicotine dependence, chewing tobacco, uncomplicated; Z79.82 Long term (current) use of aspirin; Z88.8 Allergy status to other drugs, medicaments and biological substances
CPT/HCPCS: 96374; 96375; 99283-25; J1171; J1885

== ENCOUNTER 2024-04-24 01:22 | Emergency (ER) | payer OTHER ==
[~2024-04-24] VITALS: Ht 180.3 cm; Wt 104.3 kg
[2024-04-24 02:00] VITALS: BP 160/108
[2024-04-24] MEDS ORDERED: Ketorolac Tromethamine 30mg Vial IV ONE (03:30)
[2024-04-24] MEDS ORDERED: HYDROmorphone HCl/Pf 1MG SYR IV ONE (03:30)
== END 2024-04-24 04:04 | disposition home or self-care (01) ==
LOC: ER 01:22
DX: R51.9 Headache, unspecified (principal); I25.2 Old myocardial infarction; I10 Essential (primary) hypertension; E11.9 Type 2 diabetes mellitus without complications; I25.10 Atherosclerotic heart disease of native coronary artery without angina pectoris; F17.220 Nicotine dependence, chewing tobacco, uncomplicated; Z88.8 Allergy status to other drugs, medicaments and biological substances; Z79.82 Long term (current) use of aspirin; Z95.5 Presence of coronary angioplasty implant and graft
CPT/HCPCS: J1171; J1885

== ENCOUNTER 2024-06-05 01:59 | Emergency (ER) | payer OTHER ==
[~2024-06-05] VITALS: Ht 180.3 cm; Wt 104.3 kg
[2024-06-05 02:29] VITALS: BP 147/104
[2024-06-05] MEDS ORDERED: Ketorolac Tromethamine 30mg Vial IM ONE (06:05)
[2024-06-05] MEDS ORDERED: HYDROmorphone HCl/Pf 1MG SYR IM ONE (06:05)
== END 2024-06-05 06:16 | disposition home or self-care (01) ==
LOC: ER 01:59
DX: G43.909 Migraine, unspecified, not intractable, without status migrainosus (principal); Z87.820 Personal history of traumatic brain injury
CPT/HCPCS: J1171; J1885

== ENCOUNTER 2024-08-03 03:09 | Emergency (ER) | payer OTHER ==
[~2024-08-03] VITALS: Ht 180.3 cm; Wt 83.9 kg
[2024-08-03] MEDS ORDERED: Ibuprofen 600 MG Tab PO ONE (04:45)
[2024-08-03] MEDS ORDERED: NS 1,000 ML IV SCH (04:45)
[2024-08-03] MEDS ORDERED: Acetaminophen 500 MG Tab PO ONE (04:45)
[2024-08-03] MEDS ORDERED: Ketorolac Tromethamine 15mg Vial IV ONE (05:25)
[2024-08-03] MEDS ORDERED: HYDROmorphone HCl/Pf 1MG SYR IV ONE (05:25)
[2024-08-03 06:00] VITALS: BP 116/97
== END 2024-08-03 06:11 | disposition home or self-care (01) ==
LOC: ER 03:09
DX: G43.909 Migraine, unspecified, not intractable, without status migrainosus (principal); I10 Essential (primary) hypertension; E11.9 Type 2 diabetes mellitus without complications; I48.91 Unspecified atrial fibrillation; F17.220 Nicotine dependence, chewing tobacco, uncomplicated; Z79.82 Long term (current) use of aspirin; Z79.899 Other long term (current) drug therapy; Z88.8 Allergy status to other drugs, medicaments and biological substances
CPT/HCPCS: 96374; 96375; 99282-25; A9270; J1171; J1885; J7030

== ENCOUNTER 2024-11-02 01:21 | Emergency (ER) | payer OTHER ==
[~2024-11-02] VITALS: Ht 182.9 cm; Wt 113.4 kg
[2024-11-02 01:34] VITALS: BP 153/106
[2024-11-02] MEDS ORDERED: HYDROmorphone HCl/Pf 1MG SYR IV ONE (02:05)
[2024-11-02] MEDS ORDERED: NS 1,000 ML IV SCH (02:10)
[2024-11-02] MEDS ORDERED: Ketorolac Tromethamine 15mg Vial IV ONE (02:45)
== END 2024-11-02 03:08 | disposition home or self-care (01) ==
LOC: ER 01:21
DX: R51.9 Headache, unspecified (principal); E86.0 Dehydration; I48.91 Unspecified atrial fibrillation; I10 Essential (primary) hypertension; E11.9 Type 2 diabetes mellitus without complications; F17.220 Nicotine dependence, chewing tobacco, uncomplicated; Z68.33 Body mass index [BMI] 33.0-33.9, adult; Z79.82 Long term (current) use of aspirin; Z79.899 Other long term (current) drug therapy; Z88.8 Allergy status to other drugs, medicaments and biological substances
CPT/HCPCS: 96374; 96375; 99283-25; J1171; J1885; J7030

== ENCOUNTER 2024-12-14 01:14 | Emergency (ER) | payer OTHER ==
[~2024-12-14] VITALS: Ht 182.9 cm; Wt 104.3 kg
[2024-12-14] MEDS ORDERED: Ketorolac Tromethamine 15mg Vial IV ONE (03:05)
[2024-12-14] MEDS ORDERED: HYDROmorphone HCl/Pf 1MG SYR IV ONE (03:05)
[2024-12-14] MEDS ORDERED: NS 1,000 ML IV SCH (03:10)
[2024-12-14 03:57] VITALS: BP 137/91
== END 2024-12-14 03:54 | disposition home or self-care (01) ==
LOC: ER 01:14
DX: G43.909 Migraine, unspecified, not intractable, without status migrainosus (principal); I48.91 Unspecified atrial fibrillation; E11.9 Type 2 diabetes mellitus without complications; I10 Essential (primary) hypertension; F17.220 Nicotine dependence, chewing tobacco, uncomplicated; Z79.82 Long term (current) use of aspirin; Z79.899 Other long term (current) drug therapy; Z88.8 Allergy status to other drugs, medicaments and biological substances
CPT/HCPCS: 96374; 96375; 99283-25; J1171; J1885; J7030

== ENCOUNTER 2025-01-18 01:46 | Emergency (ER) | payer OTHER ==
[~2025-01-18] VITALS: Ht 180.3 cm; Wt 104.3 kg
[2025-01-18 02:15] VITALS: BP 154/96
[2025-01-18] MEDS ORDERED: Ketorolac Tromethamine 15mg Vial IV ONE (03:50)
[2025-01-18] MEDS ORDERED: HYDROmorphone HCl/Pf 1MG SYR IV ONE (03:50)
[2025-01-18] MEDS ORDERED: NS 1,000 ML IV SCH (03:50)
== END 2025-01-18 04:54 | disposition home or self-care (01) ==
LOC: ER 01:46
DX: R51.9 Headache, unspecified (principal); E86.0 Dehydration; I48.91 Unspecified atrial fibrillation; I10 Essential (primary) hypertension; E11.9 Type 2 diabetes mellitus without complications; Z87.820 Personal history of traumatic brain injury; Z87.891 Personal history of nicotine dependence; Z79.899 Other long term (current) drug therapy; Z79.82 Long term (current) use of aspirin; Z88.8 Allergy status to other drugs, medicaments and biological substances
CPT/HCPCS: 96374; 96375; 99283-25; J1171; J1885; J7030